=== PATIENT | female | born 1970 | race Caucasian/White ===

== ENCOUNTER → 2019-08-26 | Outpatient (CLI) | payer OTHER ==
[2019-08-26 19:54] LABS: BASOPHILS ABSOLUTE AUTO 0.05 K/mm3 (0.00-0.23); BASOPHILS PERCENT AUTO 1 % (0-2); EOSINOPHILS ABSOLUTE AUTO 0.17 K/mm3 (0.00-0.68); EOSINOPHILS PERCENT AUTO 4 % (0-6); Hematocrit 33.4 % (33.0-51.0); Hemoglobin 8.1 g/dL (11.5-16.0); IMMATURE GRAN ABSOLUTE AUTO 0.01 K/mm3 (0.00-0.10); IMMATURE GRAN PERCENT AUTO 0 % (0-1); LYMPHOCYTES PERCENT AUTO 29 % (21-46); MONOCYTES ABSOLUTE AUTO 0.45 K/mm3 (0.16-1.47); MONOCYTES PERCENT AUTO 9 % (4-13); Mean Corpuscular HGB 14.8 pg (26.0-34.0); Mean Corpuscular HGB Conc 24.3 g/dL (31.5-36.5); Mean Corpuscular Volume 61 fL (80-100); NEUTROPHILS ABSOLUTE AUTO 2.72 K/mm3 (1.96-9.15); NEUTROPHILS PERCENT AUTO 57 % (41-73); Platelet Count 292 K/mm3 (150-400); RDW Coefficient Variation 23.6 % (11.7-14.2); Red Blood Cell Count 5.47 M/mm3 (3.80-5.20)
[2019-08-26 19:57] LABS: Alanine Aminotransfer (ALT/SGP 25 U/L (12-78); Albumin, Blood 3.9 g/dL (3.4-5.0); Albumin/Globulin Ratio 0.9 (0.8-1.8); Alk Phos 55 U/L (50-136); Anion Gap 7 mmol/L (6-16); Aspartate Aminotrans (AST/SGOT 16 U/L (12-37); Bilirubin, Total 0.4 mg/dL (0.1-1.0); Blood Urea Nitrogen 11 mg/dL (8-24); Bun/Creatinine Ratio 16.5 (12.0-20.0); CHOL/HDL RATIO 3.3; CO2, Blood 25 mmol/L (21-32); Calcium, Blood 8.6 mg/dL (8.5-10.1); Chloride, Blood 108 mmol/L (98-108); Cholesterol 157 mg/dL (50-200); Creatinine, Blood 0.67 mg/dL (0.40-1.00); Globulin, Blood 4.4 g/dL (2.2-4.0); Glomerular Filtration Rate >60 (60-); Glucose, Blood 106 mg/dL (70-99); HDL Cholesterol 48 mg/dL (>39); LDL/HDL RATIO 1.9; Low Density Lipoprotein Chol 91 mg/dL (0-110); Potassium, Blood 4.4 mmol/L (3.5-5.5); Sodium, Blood 140 mmol/L (136-145); Total Protein, Blood 8.3 g/dL (6.4-8.2); Triglycerides 89 mg/dL (30-160); Very Low Density Lipoprot Chol 17 mg/dL (6-32)
== END | disposition home or self-care (01) ==
LOC: LAB 18:30 → LAB SHORT 18:30
PROVIDERS: Physician Assistant
DX: Z13.6 Encounter for screening for cardiovascular disorders (principal)
CPT/HCPCS: 80053; 80061; 85025

== ENCOUNTER → 2019-12-23 | Outpatient (CLI) | payer OTHER ==
[2019-12-23 20:45] LABS: BASOPHILS ABSOLUTE AUTO 0.03 K/mm3 (0.00-0.23); BASOPHILS PERCENT AUTO 1 % (0-2); EOSINOPHILS ABSOLUTE AUTO 0.16 K/mm3 (0.00-0.68); EOSINOPHILS PERCENT AUTO 3 % (0-6); Hematocrit 40.5 % (33.0-51.0); Hemoglobin 10.7 g/dL (11.5-16.0); IMMATURE GRAN ABSOLUTE AUTO 0.01 K/mm3 (0.00-0.10); IMMATURE GRAN PERCENT AUTO 0 % (0-1); LYMPHOCYTES ABSOLUTE AUTO 1.54 K/mm3 (0.84-5.20); LYMPHOCYTES PERCENT AUTO 26 % (21-46); MONOCYTES ABSOLUTE AUTO 0.49 K/mm3 (0.16-1.47); MONOCYTES PERCENT AUTO 8 % (4-13); Mean Corpuscular HGB 17.7 pg (26.0-34.0); Mean Corpuscular HGB Conc 26.4 g/dL (31.5-36.5); Mean Corpuscular Volume 67 fL (80-100); NEUTROPHILS ABSOLUTE AUTO 3.66 K/mm3 (1.96-9.15); NEUTROPHILS PERCENT AUTO 62 % (41-73); Platelet Count 226 K/mm3 (150-400); RDW Coefficient Variation 23.2 % (11.7-14.2); Red Blood Cell Count 6.03 M/mm3 (3.80-5.20); White Blood Cell Count 5.89 K/mm3 (4.00-11.30)
[2019-12-25 10:08] LABS: HBSAG SCREEN Negative (Negative); HEP B CORE AB, TOT Negative (Negative); HEP C VIRUS AB <0.1 (0.0-0.9)
== END | disposition home or self-care (01) ==
LOC: LAB SHORT 18:33 → LAB 18:33
PROVIDERS: Family Medicine
DX: Z11.59 Encounter for screening for other viral diseases (principal); Z13.228 Encounter for screening for other metabolic disorders; D50.9 Iron deficiency anemia, unspecified
CPT/HCPCS: 82728; 83540; 83550; 84443; 85025; 86704; 86708; 86803; 87340

== ENCOUNTER 2022-11-19 10:00 | Inpatient (IN) | payer OTHER ==
[~2022-11-19] VITALS: Ht 180.3 cm; Wt 83.9 kg
[2022-12-10] MEDS ORDERED: DAILY-VITE1 EACH PO (14:23)
[2022-12-12] VITALS (19 sets, daily range): BP systolic 98–150; BP diastolic 70–99
--- NOTE | 2022-12-12 07:17 | NUR ---
Ambulatory in Day Surgery, Patient confirms NPO status and agrees with scheduled surgery. Pre-Op teaching done. Pt verbalizes understanding. History, Chart, Medications and Allergies reviewed before start of procedure.
--- NOTE | 2022-12-12 07:38 | NUR ---
PT BACK TO DEPARTMENT. DR. NOWAK WOULD LIKE A HCG RUN. PT TOLD THIS RN THAT SHE HAD BEEN THROUGH MENOPAUSE, BUT NOW STATES SHE "IS GOING THROUGH MENOPAUSE" BUT IS STILL HAVING PERIODS. PT NOTED TO HAVE BURN PICKARD ACROSS MID BACK. SKIN HAS PEELED AFTER BLISTERS BUT IS NOT BLEEDING OR OOZING. STATES THAT "IT IS FROM THE HEATING PAD B/C SHE HAS BEEN IN SO MUCH PAIN FROM HER UTERUS"
--- NOTE | 2022-12-12 07:45 | NUR ---
0742 PT BACK TO OR AFTER HCG NEGATIVE
--- NOTE | 2022-12-12 10:46 | NUR ---
PATIENT ARRIVED FROM PACU TODAY. POD 0 TOTAL ABD HYSTER PATIENTIS A&OX4. VS ARE WNL AND IS ON RA. PATIENT IS ON A FENTANYL DISCIPLINARY HEARING OFFICER PUMP WITH CONTINUOUS AND DISCIPLINARY HEARING OFFICER FUNCTION. DISCIPLINARY HEARING OFFICER PAIN BUTTON IS WITHIN PATIENT REACH. HER LOWER ABD HAS A MEDIPORE DRESSING WITH AN OUTLINE OF OLD BLOOD ON IT BUT IS OTHERWISE INTACT. SHE HAS UNDERWEAR WITH A SARIKA PAD IN PLACE. SHE IS TOLERATING SMALL AMOUNTS OF PO INTAKE AT THIS TIME. VICTOR IS DRAINING PER GRAVITY WITH YELLOW COLORED OUTPUT. SHE IS LAYING IN BED WITH CALL LIGHT IN REACH AND AT BEDSIDE.
--- NOTE | 2022-12-12 16:54 | NUR ---
SHIFT SUMMARY: POD 0 ABD TOTAL HYSTER PATIENT IS A&OX4. VS ARE WNL. PATIENT HAS BEEN GIVEN PO PERCOCET FOR PAIN MANAGEMENT SO FAR. HER ABD TRANSVERSE INCISION HAS A MEDIPORE DRESSING WITH OLD DRAINAGE OUTLINED BUT IS STILL INTACT. SARIKA PAD HAS SCANT AMOUNT OF BLOOD ON IT. PATIENT HAS REPORTED BEING NAUSEOUS AND HAS BEEN GIVEN IV ZOFRAN TO HELP MANAGE IT. SHE IS TOLERATING SMALL AMOUNTS OF PO INTAKE. SHE HAS AN ABD BINDER IN PLACE. SHE IS LAYING IN BED WITH CALL LIGHT IN REACH AND AT BEDSIDE.
[2022-12-13 00:04] VITALS: BP 130/84
[2022-12-13 03:18] VITALS: BP 104/75
[2022-12-13 03:20] VITALS: BP 122/76
[2022-12-13 04:16] LABS: BASOPHILS ABSOLUTE AUTO 0.01 K/mm3 (0.00-0.23); BASOPHILS PERCENT AUTO 0 % (0-2); EOSINOPHILS PERCENT AUTO 0 % (0-6); Hematocrit 26.8 % (33.0-51.0); IMMATURE GRAN ABSOLUTE AUTO 0.04 K/mm3 (0.00-0.10); IMMATURE GRAN PERCENT AUTO 0 % (0-1); LYMPHOCYTES ABSOLUTE AUTO 1.02 K/mm3 (0.84-5.20); LYMPHOCYTES PERCENT AUTO 9 % (21-46); MONOCYTES ABSOLUTE AUTO 0.99 K/mm3 (0.16-1.47); MONOCYTES PERCENT AUTO 8 % (4-13); Mean Corpuscular HGB 21.6 pg (26.0-34.0); Mean Corpuscular HGB Conc 29.9 g/dL (31.5-36.5); Mean Corpuscular Volume 72 fL (80-100); NEUTROPHILS ABSOLUTE AUTO 9.96 K/mm3 (1.96-9.15); NEUTROPHILS PERCENT AUTO 83 % (41-73); Platelet Count 237 K/mm3 (150-400); RDW Standard Deviation 57.2 fL (35.1-46.3); White Blood Cell Count 12.02 K/mm3 (4.00-11.30)
--- NOTE | 2022-12-13 05:38 | NUR ---
SUMMARY PT CONTINUES TO HAVE RIGHT SIDE RIB PAIN. PT DENIES ANY SIGNIFICANT DISCOMFORT IN ABD OR INCISION SITE. PT HAS BEEN ENCOURAGED TO MOVE AND TRY TO AMBULATE. PT HAS BEEN AFRAID TO MOVE MUCH DUE TO IT INCREASES RIGHT RIB DISCOMFORT. PT DID HAVE A NEAR SYNCOPAL EPISODE WHEN TRYING TO STAND UP. PT LAID BACK DOWN IN BED. THIS AM DID ORTHOSTATIC BP'S WITH NO CHANGES OR ISSUES. PT ABLE TO TOLERATE STANDING THIS AM BETTER THAN EARLIER. PT HAS BEEN ABLE TO SLEEP SOME. PT DISCOMFORT IS BEING MANAGED WELL THIS AM. PT CONTINUES TO WEAR ABD BINDER AND DRESSING IS C/D/I. CALL LIGHT IN REACH.
[2022-12-13 07:16] VITALS: BP 134/86
[2022-12-13] MEDS ORDERED: IBUP800 PO (14:45)
[2022-12-13] MEDS ORDERED: PERCOCET 10-321 EA13 PO (14:45)
[2022-12-13 14:47] VITALS: BP 148/88
--- NOTE | 2022-12-13 15:40 | NUR ---
DISCHARGE SUMMARY PT A&OX4, VSS/RA, DIDIER PO, VOIDING, AMB INDEPENDENTLY IN ROOM/TO BRP/HALLWAY, PAIN MANAGED, IV DC'D, POD1 ZARI/BSO, TRANSVERSE DRESSING CHANGED(EXTRAS SENT WITH PATIENT), STERISTRIPS DRY/INTACT. DC INS PROVIDED TO PT AND SPOUSE, BOTH REPORTED UNDERSTANDING. LEFT FLOOR VIA WC WITH HOSE TUBING BACKER TO GO HOME WITH SPOUSE WITH ALL PERSONAL POSSESSIONS INCLUDING DC PACKET AND 1 NARC SCRIPT.
== END 2022-12-13 15:25 | disposition home or self-care (01) | DRG 743 ==
LOC: SURS 12-12 06:24 → PRE IP 12-12 07:30 → SURS 12-12 10:21
PROVIDERS: ADMIT Obstetrics & Gynecology
PROC: 0UB54ZZ Excision of Right Fallopian Tube, Percutaneous Endoscopic Approach (ICD-10-PCS; 2022-12-12)
PROC: 0UT94ZZ Resection of Uterus, Percutaneous Endoscopic Approach (ICD-10-PCS; principal; 2022-12-12 07:30)
DX: D25.9 Leiomyoma of uterus, unspecified (principal); R93.89 Abnormal findings on diagnostic imaging of other specified body structures; N83.201 Unspecified ovarian cyst, right side; R00.2 Palpitations; M54.9 Dorsalgia, unspecified; Z79.899 Other long term (current) drug therapy; Z98.890 Other specified postprocedural states
CPT/HCPCS: 36415; 85025; 88307; 93005; 93010; A9270; J0690; J1100; J1170; J1885; J2371; J2405; J2704; J2710; J3010; J7120